=== PATIENT | male | born 1985 | race Caucasian/White ===

== ENCOUNTER 2017-09-09 11:11 | Emergency (ER) | payer BC ==
--- NOTE | 2017-09-09 12:24 | EDM.PDOC ---
ED HPI GENERAL MEDICAL PROBLEM - General Chief Complaint: General Stated Complaint: THRIST, PAIN IN SIDE, HIGH BLOOD SUGAR Time Seen by Provider: 09/09/17 11:12 Source of Information: Reports: Patient History Limitations: Reports: No Limitations - History of Present Illness INITIAL COMMENTS - FREE TEXT/NARRATIVE: History of present illness: []Patient's been having flank pain for the last 3 days and excessive urination and extreme thirst. He called his family and learned that both his mother, father and sister all have diabetes. Patient denies any fevers or chills he states that he was recently treated for sinus infection and [facility] clinic and is currently on antibiotics with sweats at night but he does not had a fever. Patient bought a glucometer and checked his because when he woke up was 190. Weight 2 hours went down to 120. He decided to drink 2 glasses of sweet tea in the went up to 210. Patient is leaving for home in [place] this week. He will follow-up with his doctor there. Review of systems: As per history of present illness and below otherwise all systems reviewed and negative. Past medical history: As per history of present illness and as reviewed below otherwise noncontributory. Surgical history: As per history of present illness and as reviewed below otherwise noncontributory. Social history: No reported history of drug or alcohol abuse. Family history: As per history of present illness and as reviewed below otherwise noncontributory. Physical exam: General: Well developed, well nourished in NAD HEENT: Atraumatic, normocephalic, pupils reactive, negative for conjunctival pallor or scleral icterus, mucous membranes moist, throat clear, neck supple, nontender, trachea midline. Lungs: Clear to auscultation, breath sounds equal bilaterally, chest nontender. Heart: S1S2, regular, negative for clicks, rubs, or JVD. Abdomen: Soft, nondistended, nontender. Negative for masses or hepatosplenomegaly. Negative for costovertebral tenderness. Pelvis: Stable nontender. Genitourinary: Deferred. Rectal: Deferred. Extremities: Atraumatic, negative for cords or calf pain. Neurovascular unremarkable. Neuro: Awake, alert, oriented. Cranial nerves II through XII unremarkable. Cerebellum unremarkable. Motor and sensory unremarkable throughout. Exam nonfocal. Diagnostics: []CBC chemistry urine negative for elevated glucose, dehydration or infection. Therapeutics: [] Impression: []New onset diabetes by history Plan: []Follow-up with primary care physician back in [place] next week. Definitive disposition and diagnosis as appropriate pending reevaluation and review of above. Flank Pain Score (Numeric/FACES): 6 - Related Data Allergies Allergy/AdvReac Type Severity Reaction Status Date / Time Penicillins Allergy Cannot Verified 09/09/17 11:34 Remember Home Meds: Home Meds Sertraline [Zoloft] 25 mg PO DAILY 09/09/17 [History] Past Medical History - Past Health History Medical/Surgical History: Denies Medical/Surgical History Psychiatric History: Reports: Anxiety - Infectious Disease History Infectious Disease History: Reports: Chicken Pox Social & Family History - Family History Family Medical History: Noncontributory - Tobacco Use Smoking Status *Q: Never Smoker - Recreational Drug Use Recreational Drug Use: No ED ROS GENERAL - Review of Systems Review Of Systems: See Below (See history of present illness) ED EXAM, GENERAL - Physical Exam Exam: See Below (See history of present illness) Course - Vital Signs Last Recorded V/S: Last Vital Signs Temp 96.4 F 09/09/17 11:29 Pulse 104 H 09/09/17 11:29 Resp 18 09/09/17 11:29 BP 180/93 H 09/09/17 11:29 Pulse Ox 94 L 09/09/17 11:29 - Orders/Labs/Meds Orders: Active Orders 24 hr Category Date Time Status GLYCOSYLATED HEMOGLOBIN,HGBA1C [CHEM] Stat Lab 09/09/17 12:52 Received Labs: Laboratory Tests 09/09/17 09/09/17 09/09/17 Range/Units 12:22 12:52 12:52 WBC 9.53 (4.0-11.0) K/uL RBC 5.39 (4.50-5.90) M/uL Hgb 17.1 H (13.0-17.0) g/dL Hct 48.0 (38.0-50.0) % MCV 89.1 (80.0-98.0) fL MCH 31.7 (27.0-32.0) pg MCHC 35.6 (31.0-37.0) g/dL RDW Std Deviation 42.2 (28.0-62.0) fl RDW Coeff of Meera 13 (11.0-15.0) % Plt Count 229 (150-400) K/uL MPV 9.30 (7.40-12.00) fL Neut % (Auto) 72.3 (48.0-80.0) % Lymph % (Auto) 20.0 (16.0-40.0) % Brule % (Auto) 6.6 (0.0-15.0) % Eos % (Auto) 0.6 (0.0-7.0) % Baso % (Auto) 0.5 (0.0-1.5) % Neut # (Auto) 6.9 H (1.4-5.7) K/uL Lymph # (Auto) 1.9 (0.6-2.4) K/uL Brule # (Auto) 0.6 (0.0-0.8) K/uL Eos # (Auto) 0.1 (0.0-0.7) K/uL Baso # (Auto) 0.1 (0.0-0.1) K/uL Nucleated RBC % 0.0 /100WBC Nucleated RBCs # 0 K/uL Sodium 136 (136-146) mmol/L Potassium 4.4 (3.5-5.1) mmol/L Chloride 100 (98-110) mmol/L Carbon Dioxide 23 (21-31) mmol/L BUN 7 (6.0-23.0) mg/dL Creatinine 0.9 (0.6-1.5) mg/dL Est Cr Clr Drug Dosing 142.14 mL/min Estimated GFR (MDRD) > 60.0 ml/min Glucose 102 (60-110) mg/dL Calcium 9.8 (8.8-10.8) mg/dL Total Bilirubin 0.4 (0.1-1.5) mg/dL AST 37 (5-40) IU/L ALT 51 (8-54) IU/L Alkaline Phosphatase 83 (40-150) Total Protein 8.6 H (6.0-8.0) g/dL Albumin 4.9 (3.5-5.0) g/dL Globulin 3.7 H (2.0-3.5) g/dL Albumin/Globulin Ratio 1.3 (1.3-2.8) Urine Color YELLOW Urine Appearance CLEAR Urine pH 7.0 (5.0-8.0) Ur Specific [place] 1.010 (1.001-1.035) Urine Protein NEGATIVE (NEGATIVE) mg/dL Urine Glucose (UA) NEGATIVE (NEGATIVE) mg/dL Urine Ketones NEGATIVE (NEGATIVE) mg/dL Urine Occult Blood TRACE-LYSED (NEGATIVE) Urine Nitrite NEGATIVE (NEGATIVE) Urine Bilirubin NEGATIVE (NEGATIVE) Urine Urobilinogen 0.2 (<2.0) EU/dL Ur Leukocyte Esterase NEGATIVE (NEGATIVE) Urine RBC 0-1 (0-2/HPF) Urine WBC 0-1 (0-5/HPF) Ur Epithelial Cells RARE (NONE-FEW) Urine Bacteria RARE (NEGATIVE) Departure - Departure Time of Disposition: 13:33 Disposition: Home, Self-Care 01 Condition: Good Clinical Impression: Diabetes mellitus, new onset - Discharge Information Referrals: PCP,None [Primary Care Provider] - Forms: ED Department Discharge Additional Instructions: The following information is given to patients seen in the emergency department who are being discharged to home. This information is to outline your options for follow-up care. We provide all patients seen in our emergency department with a follow-up referral. The need for follow-up, as well as the timing and circumstances, are variable depending upon the specifics of your emergency department visit. If you don't have a primary care physician on staff, we will provide you with a referral. We always advise you to contact your personal physician following an emergency department visit to inform them of the circumstance of the visit and for follow-up with them and/or the need for any referrals to a consulting specialist. The emergency department will also refer you to a specialist when appropriate. This referral assures that you have the opportunity for follow-up care with a specialist. All of these measure are taken in an effort to provide you with optimal care, which includes your follow-up. Under all circumstances we always encourage you to contact your private physician who remains a resource for coordinating your care. When calling for follow-up care, please make the office aware that this follow-up is from your recent emergency room visit. If for any reason you are refused follow-up, please contact the [facility] Emergency Department at and asked to speak to the emergency department charge nurse. [facility] [address] [place] [id number] - My Orders Last 24 Hours: My Active Orders 09/09/17 12:52 GLYCOSYLATED HEMOGLOBIN,HGBA1C [CHEM] Stat - Assessment/Plan Last 24 Hours: My Active Orders 09/09/17 12:52 GLYCOSYLATED HEMOGLOBIN,HGBA1C [CHEM] Stat
[2017-09-09 13:25] LABS: CHLORIDE,CL 100 mmol/L (98-110); SODIUM,NA 136 mmol/L (136-146)
== END 2017-09-09 13:44 | disposition home or self-care (01) ==
LOC: MW.ED 11:11
DX: E11.9 Type 2 diabetes mellitus without complications (principal); F41.9 Anxiety disorder, unspecified; Z79.899 Other long term (current) drug therapy; Z88.0 Allergy status to penicillin
CPT/HCPCS: 36415; 80053; 81001; 83036; 85025; 99283